=== PATIENT | female | born 1950 | race Hispanic/Latino ===

== ENCOUNTER → 2021-12-15 | Outpatient (CLI) | payer MEDICARE ==
[~2021-12-15] MED LIST: AMOXICILLIN250 MG PO; LEVAQUIN500 MG PO; POTASSIUM CHLO20 ME1 PO; TYLENOL WITH C1 EACH PO
== END ==
LOC: US 07:52
PROVIDERS: ATTEND Family Medicine
DX: R10.9 Unspecified abdominal pain (principal); R10.2 Pelvic and perineal pain
CPT/HCPCS: 76700; 76857